=== PATIENT | male | born 1945 | race African-American/Black ===

== ENCOUNTER 2016-05-13 14:47 | Outpatient (CLI) | payer MEDICARE ==
[2016-05-13 15:28] LABS: Prothrombin Time 20.9 SEC (12.0-14.7)
== END 2016-05-13 14:48 | disposition home or self-care (01) ==
LOC: NAV LAB 14:47
PROVIDERS: ATTEND Internal Medicine Cardiovascular Disease
DX: I48.0 Paroxysmal atrial fibrillation (principal); Z79.1 Long term (current) use of non-steroidal anti-inflammatories (NSAID)
CPT/HCPCS: 36415; 85610

== ENCOUNTER 2016-05-26 15:58 | Outpatient (CLI) | payer MEDICARE ==
[2016-05-26 17:05] LABS: Prothrombin Time 27.9 SEC (12.0-14.7)
== END 2016-05-26 15:59 | disposition home or self-care (01) ==
LOC: NAV LAB 15:58
PROVIDERS: ATTEND Internal Medicine Cardiovascular Disease
DX: I48.0 Paroxysmal atrial fibrillation (principal); Z79.1 Long term (current) use of non-steroidal anti-inflammatories (NSAID)
CPT/HCPCS: 36415; 85610

== ENCOUNTER 2016-06-11 08:46 | Outpatient (CLI) | payer MEDICARE ==
[2016-06-11 09:23] LABS: #Basophils 0.1 thou/uL (0.0-0.2); #Eosinphils 0.2 thou/uL (0.0-0.7); #Lymphocytes 1.2 thou/uL (1.20-3.40); #Monocytes 0.5 thou/uL (0.11-0.59); #Neutrophils 1.6 thou/uL (1.40-6.50); %Basophils 1.5 % (0.0-1.0); %Lymphocytes 33.8 % (21.0-51.0); %Monocytes 14.6 % (0.0-10.0); Hematocrit 43.8 % (42.0-52.0); Mean Platelet Volume 8.5 fL (7.4-10.4); Red Blood Cell (RBC) Count 5.04 mill/uL (4.70-6.10); White Blood Cell (WBC) Count 3.7 thou/uL (4.8-10.8)
[2016-06-11 09:35] LABS: ALT (SGPT) 25 U/L (0-55); AST (SGOT) 32 U/L (5-34); Alkaline Phosphatase 55 U/L (40-150); Anion Gap 13 mmol/L (10-20); BUN (Urea Nitrogen) 18 mg/dL (8.4-25.7); Bilirubin, Total 0.5 mg/dL (0.2-1.2); Calc. Creatinine Clearance 0 mL/min (70-130); Calcium 9.1 mg/dL (7.8-10.44); Carbon Dioxide 24 mmol/L (23-31); Chloride 106 mmol/L (98-107); Estimated GFR-MDRD 59; Globulin 3.3 g/dL (2.4-3.5); LDL Cholesterol, Calculated 98 mg/dL; Protein, Total 7.5 g/dL (5.8-8.1)
== END 2016-06-11 08:47 | disposition home or self-care (01) ==
LOC: NAV LAB 08:46
PROVIDERS: ATTEND Internal Medicine Cardiovascular Disease
DX: I48.0 Paroxysmal atrial fibrillation (principal); I34.0 Nonrheumatic mitral (valve) insufficiency; E78.5 Hyperlipidemia, unspecified
CPT/HCPCS: 36415; 80053; 80061; 85025

== ENCOUNTER 2016-06-24 14:52 | Outpatient (CLI) | payer MEDICARE ==
[2016-06-24 15:28] LABS: Prothrombin Time 25.4 SEC (12.0-14.7)
== END 2016-06-24 14:53 | disposition home or self-care (01) ==
LOC: NAV LAB 14:52
PROVIDERS: ATTEND Internal Medicine Cardiovascular Disease
DX: I48.0 Paroxysmal atrial fibrillation (principal); Z79.01 Long term (current) use of anticoagulants
CPT/HCPCS: 36415; 85610

== ENCOUNTER 2016-07-22 11:55 | Outpatient (CLI) | payer MEDICARE ==
[2016-07-22 12:35] LABS: Prothrombin Time 26.9 SEC (12.0-14.7)
== END 2016-07-22 11:56 | disposition home or self-care (01) ==
LOC: NAV LAB 11:55
PROVIDERS: ATTEND Internal Medicine Cardiovascular Disease
DX: I48.0 Paroxysmal atrial fibrillation (principal)
CPT/HCPCS: 36415; 85610

== ENCOUNTER 2016-08-19 16:35 | Outpatient (CLI) | payer MEDICARE ==
[2016-08-19 17:04] LABS: INR-International Normal Ratio 2.8; Prothrombin Time 30.3 SEC (12.0-14.7)
== END 2016-08-19 16:36 | disposition home or self-care (01) ==
LOC: NAV LAB 16:35
PROVIDERS: ATTEND Internal Medicine Cardiovascular Disease
DX: I48.0 Paroxysmal atrial fibrillation (principal); Z79.1 Long term (current) use of non-steroidal anti-inflammatories (NSAID)
CPT/HCPCS: 36415; 85610

== ENCOUNTER 2016-09-16 11:41 | Outpatient (CLI) | payer MEDICARE ==
[2016-09-16 12:20] LABS: INR-International Normal Ratio 2.4; Prothrombin Time 27.1 SEC (12.0-14.7)
== END 2016-09-16 11:42 | disposition home or self-care (01) ==
LOC: NAV LAB 11:41
PROVIDERS: ATTEND Internal Medicine Cardiovascular Disease
DX: Z51.81 Encounter for therapeutic drug level monitoring (principal); I48.0 Paroxysmal atrial fibrillation; Z79.1 Long term (current) use of non-steroidal anti-inflammatories (NSAID)
CPT/HCPCS: 36415; 85610

== ENCOUNTER 2016-10-16 11:56 | Outpatient (CLI) | payer MEDICARE ==
[2016-10-16 12:40] LABS: INR-International Normal Ratio 2.6; Prothrombin Time 29.1 SEC (12.0-14.7)
[2016-10-16 13:31] LABS: Follow-up Coag Comp? YES; Follow-up Result - Coag REPORT FAXED
== END 2016-10-16 11:57 | disposition home or self-care (01) ==
LOC: NAV LAB 11:56
PROVIDERS: ATTEND Internal Medicine Cardiovascular Disease
DX: Z51.81 Encounter for therapeutic drug level monitoring (principal); I48.0 Paroxysmal atrial fibrillation; Z79.01 Long term (current) use of anticoagulants
CPT/HCPCS: 36415; 85610

== ENCOUNTER 2016-11-03 12:46 | Outpatient (CLI) | payer MEDICARE ==
[2016-11-03 14:00] LABS: INR-International Normal Ratio 2.7
[2016-11-03 14:25] LABS: Follow-up Coag Comp? YES; Follow-up Result - Coag REPORT FAXED
== END 2016-11-03 12:47 | disposition home or self-care (01) ==
LOC: NAV LAB 12:46
PROVIDERS: ATTEND Internal Medicine Cardiovascular Disease
DX: I48.0 Paroxysmal atrial fibrillation (principal); Z79.1 Long term (current) use of non-steroidal anti-inflammatories (NSAID)
CPT/HCPCS: 36415; 85610

== ENCOUNTER 2016-12-02 17:52 | Outpatient (CLI) | payer MEDICARE ==
[2016-12-02 19:59] LABS: INR-International Normal Ratio 2.7
== END 2016-12-02 17:53 | disposition home or self-care (01) ==
LOC: NAV LAB 17:52
PROVIDERS: ATTEND Internal Medicine Cardiovascular Disease
DX: Z51.81 Encounter for therapeutic drug level monitoring (principal); I48.0 Paroxysmal atrial fibrillation; Z79.1 Long term (current) use of non-steroidal anti-inflammatories (NSAID)
CPT/HCPCS: 85610

== ENCOUNTER 2017-01-05 15:09 | Outpatient (CLI) | payer MEDICARE ==
[2017-01-05 16:15] LABS: INR-International Normal Ratio 2.5; Prothrombin Time 28.2 SEC (12.0-14.7)
== END 2017-01-05 15:10 | disposition home or self-care (01) ==
LOC: NAV LAB 15:09
PROVIDERS: ATTEND Internal Medicine Cardiovascular Disease
DX: Z51.81 Encounter for therapeutic drug level monitoring (principal); I48.0 Paroxysmal atrial fibrillation; Z79.1 Long term (current) use of non-steroidal anti-inflammatories (NSAID)
CPT/HCPCS: 36415; 85610

== ENCOUNTER 2017-01-27 13:11 | Outpatient (CLI) | payer MEDICARE ==
[2017-01-27 13:43] LABS: #Basophils 0.1 thou/uL (0.0-0.2); #Eosinphils 0.2 thou/uL (0.0-0.7); #Lymphocytes 1.4 thou/uL (1.20-3.40); #Monocytes 0.7 thou/uL (0.11-0.59); #Neutrophils 2.2 thou/uL (1.40-6.50); %Basophils 1.8 % (0.0-1.0); %Eosinophils 4.5 % (0.0-10.0); %Lymphocytes 30.8 % (21.0-51.0); %Monocytes 14.5 % (0.0-10.0); %Neutrophils 48.3 % (42.0-75.0); Hemoglobin 13.1 g/dL (14.0-18.0); Mean Corpuscular HGB CONC 30.9 g/dL (32.0-36.0); Mean Corpuscular Hemoglobin 26.7 pg (27.0-31.0); Mean Corpuscular Volume 86.5 fl (80.0-94.0); Mean Platelet Volume 8.2 fL (7.4-10.4); Platelet Count 174 thou/uL (130-400); RBC Distribution Width 14.1 % (11.5-14.5); Red Blood Cell (RBC) Count 4.93 mill/uL (4.70-6.10); White Blood Cell (WBC) Count 4.6 thou/uL (4.8-10.8)
[2017-01-27 13:44] LABS: ALT (SGPT) 22 U/L (8-55); AST (SGOT) 28 U/L (5-34); Alkaline Phosphatase 59 U/L (40-150); Anion Gap 12 mmol/L (10-20); BUN (Urea Nitrogen) 21 mg/dL (8.4-25.7); Bilirubin, Total 0.4 mg/dL (0.2-1.2); Calc. Creatinine Clearance 0 mL/min (70-130); Calcium 9.2 mg/dL (7.8-10.44); Carbon Dioxide 25 mmol/L (23-31); Chloride 107 mmol/L (98-107); Estimated GFR-MDRD 62; Globulin 3.5 g/dL (2.4-3.5); Glucose 81 mg/dL (80-115); Potassium 4.1 mmol/L (3.5-5.1); Protein, Total 7.5 g/dL (5.8-8.1); Sodium 140 mmol/L (136-145)
[2017-01-27 15:56] LABS: Follow-up Chemistry Comp? YES
== END 2017-01-27 13:12 | disposition home or self-care (01) ==
LOC: NAV LAB 13:11
PROVIDERS: ATTEND Internal Medicine Cardiovascular Disease
DX: I11.0 Hypertensive heart disease with heart failure (principal); I50.21 Acute systolic (congestive) heart failure
CPT/HCPCS: 36415; 80053; 85025

== ENCOUNTER 2017-02-03 15:57 | Outpatient (CLI) | payer MEDICARE ==
[2017-02-03 16:30] LABS: INR-International Normal Ratio 2.2; Prothrombin Time 25.2 SEC (12.0-14.7)
== END 2017-02-03 15:58 | disposition home or self-care (01) ==
LOC: NAV LAB 15:57
PROVIDERS: ATTEND Internal Medicine Cardiovascular Disease
DX: Z51.81 Encounter for therapeutic drug level monitoring (principal); I48.0 Paroxysmal atrial fibrillation; Z79.1 Long term (current) use of non-steroidal anti-inflammatories (NSAID)
CPT/HCPCS: 36415; 85610

== ENCOUNTER 2017-09-09 14:52 | Emergency (ER) | payer MEDICARE ==
[2017-09-09 16:18] LABS: Prothrombin Time 32.2 SEC (12.0-14.7)
[2017-09-09 16:38] LABS: Hemoglobin 11.8 g/dL (14.0-18.0); Mean Corpuscular HGB CONC 30.9 g/dL (32.0-36.0); Mean Corpuscular Hemoglobin 26.3 pg (27.0-31.0); Mean Corpuscular Volume 85.2 fl (80.0-94.0); Mean Platelet Volume 7.9 fL (7.4-10.4); Platelet Count 169 thou/uL (130-400); RBC Distribution Width 13.8 % (11.5-14.5); Red Blood Cell (RBC) Count 4.49 mill/uL (4.70-6.10); White Blood Cell (WBC) Count 5.5 thou/uL (4.8-10.8)
[2017-09-09 16:42] LABS: Band 1 % (5-11); Eosinophils 2 % (0-10); Hypochromia SLIGHT = 6-15 cells (100X) (0-5/hpf); Lymphocytes 35 % (21-51); MDiff Complete? YES; Monocytes 8 % (0-10); Neutrophil 54 % (42-75); PLT Morphology Comment Appears Adequate
--- NOTE | 2017-09-09 17:11 | ULT ---
LEFT LOWER EXTREMITY VENOUS ULTRASOUND WITH DOPPLER 09/09/17 HISTORY: Left lower extremity pain. Bruising. COMPARISON: None. TECHNIQUE: Asez scale, color flow, doppler imaging with spectral waveform analysis performed in the left lower e xtremity venous system. FINDINGS: There is compressibility, presence of flow and augmentation in the common femoral vein, femoral vein, and popliteal vein. There is flow in the greater saphenous vein, profunda vein, and posterior tibial vein. In the lower inner thigh there is a hypoechoic focus measuring 13 cm in length x 2.2 x 2.7 cm. No vas cular flow. Possible hematoma is raised. IMPRESSION: 1. Left lower extremity hematoma is suspected. 2. No evidence of thrombus in the left extremity deep venous system. POS: [facility]
== END 2017-09-09 17:03 | disposition home or self-care (01) ==
LOC: NAV ERS 14:52
DX: S70.12XA Contusion of left thigh, initial encounter (principal); D68.9 Coagulation defect, unspecified; I48.91 Unspecified atrial fibrillation; E78.5 Hyperlipidemia, unspecified; I10 Essential (primary) hypertension; Z79.01 Long term (current) use of anticoagulants; Z79.899 Other long term (current) drug therapy; Z79.82 Long term (current) use of aspirin; X58.XXXA Exposure to other specified factors, initial encounter
CPT/HCPCS: 85025; 85610

== ENCOUNTER 2021-03-04 15:32 | Outpatient (CLI) | payer MEDICARE ==
[2021-03-04 16:01] LABS: INR-International Normal Ratio 3.1; Prothrombin Time 32.7 sec (12.0-14.7)
== END 2021-03-04 15:33 | disposition home or self-care (01) ==
LOC: NAV LAB 15:32
PROVIDERS: ATTEND Internal Medicine Cardiovascular Disease
DX: Z51.81 Encounter for therapeutic drug level monitoring (principal); Z79.01 Long term (current) use of anticoagulants
CPT/HCPCS: 36415; 85610

== ENCOUNTER 2021-04-29 13:55 | Outpatient (CLI) | payer MEDICARE ==
[2021-04-29 14:47] LABS: Prothrombin Time 23.3 sec (12.0-14.7)
[2021-04-29 23:00] LABS: Follow-up Coag Comp? YES; Follow-up Result - Coag REPORT FAXED
== END 2021-04-29 13:56 | disposition home or self-care (01) ==
LOC: NAV ERS 13:55 → NAV LAB 13:56
PROVIDERS: ATTEND Internal Medicine Cardiovascular Disease
DX: Z51.81 Encounter for therapeutic drug level monitoring (principal); Z79.01 Long term (current) use of anticoagulants
CPT/HCPCS: 36415; 85610

== ENCOUNTER 2021-09-24 17:50 | Outpatient (CLI) | payer MEDICARE ==
[2021-09-24 19:03] LABS: INR-International Normal Ratio 3.4; Prothrombin Time 35.1 sec (12.0-14.7)
[2021-09-25 02:53] LABS: Follow-up Coag Comp? YES; Follow-up Result - Coag REPORT FAXED
== END 2021-09-24 17:51 | disposition home or self-care (01) ==
LOC: NAV LABSP 17:50
PROVIDERS: ATTEND Internal Medicine Cardiovascular Disease
DX: Z51.81 Encounter for therapeutic drug level monitoring (principal); Z79.01 Long term (current) use of anticoagulants
CPT/HCPCS: 36415; 85610